=== PATIENT | male | born 1940 | race Caucasian/White ===

== ENCOUNTER 2018-02-14 21:16 | Emergency (ER) | payer MEDICARE, BC ==
--- NOTE | 2018-02-14 21:43 | EDM.PDOC ---
ED HPI GENERAL MEDICAL PROBLEM - General Chief Complaint: Cardiovascular Problem Stated Complaint: possible [facility] Time Seen by Provider: 02/14/18 21:20 Source of Information: Reports: Patient History Limitations: Reports: No Limitations - History of Present Illness INITIAL COMMENTS - FREE TEXT/NARRATIVE: Pt is a 77 year male with IDDM, CRF with AVR with CHF presenting to emergency room by ambulance.According to patient he has been short of breath since 8 Pm today.Shortness of breath came on suddenly. Pt has had no chest pain, sweating, nausea, vomiting. Pt has been drinking lots fluids recently as he has been working outdoor in the [employer]. No fever or chills. No chest pain. Has been having wet cough since today evening. Also he has been frequently waking up to urinate at night for past few days.He cannot lye down flat as his shortness of breath gets worse, feels better sitting on bedside. Pt has had several episodes of CHF in the past. He does have Heart failure education, but he is non-compliant according to pt's spouse. Onset: Today Onset Date: 02/14/18 Onset Time: 20:00 Duration: Constant, Other (unchanged) Quality: Reports: Ache Severity: Moderate Improves with: Reports: None Worsens with: Reports: None Associated Symptoms: Reports: Shortness of Breath. Denies: Confusion, Chest Pain, Cough, Diaphoresis, Fever/Chills, Headaches, Nausea/Vomiting, Rash, Seizure, Syncope, Weakness ED ROS GENERAL - Review of Systems Review Of Systems: See Below Constitutional: Denies: Fever, Chills, Malaise, Weakness, Night Sweats, Diaphoresis HEENT: Denies: Rhinitis, Sinus Problem, Throat Pain, Throat Swelling, Vertigo Respiratory: Reports: Shortness of Breath. Denies: Wheezing, Pleuritic Chest Pain, Cough, Sputum Cardiovascular: Denies: Chest Pain, Lightheadedness GI/Abdominal: Denies: Abdominal Pain, Constipation, Diarrhea, Nausea, Vomiting : Denies: Dysuria, Flank Pain Musculoskeletal: Denies: Joint Pain, Joint Swelling Skin: Denies: Pruritis, Rash ED EXAM, GENERAL - Physical Exam Exam: See Below Exam Limited By: No Limitations General Appearance: Alert, WD/WN, No Apparent Distress Eye Exam: Bilateral Eye: EOMI, PERRL Ears: Normal External Exam, Normal Canal, Hearing Grossly Normal, Normal TMs Ear Exam: Bilateral Ear: Auricle Normal, Canal Normal, TM normal Nose: Normal Inspection, Normal Mucosa, No Blood Throat/Mouth: Normal Inspection, Normal Lips, Normal Teeth, Normal Gums, Normal Oropharynx, Normal Voice, No Airway Compromise Head: Atraumatic, Normocephalic Neck: Normal Inspection, Supple, Non-Tender, Full Range of Motion Respiratory/Chest: No Accessory Muscle Use, Chest Non-Tender, Respiratory Distress (moderate), Crackles (Coarse expiratory crakles heard all over the lung parry, with decreased air entry in the posterior chest.) Cardiovascular: Regular Rate, Rhythm. No: No Murmur GI/Abdominal: Normal Bowel Sounds, Soft, Non-Tender, No Organomegaly, No Distention, No Abnormal Bruit, No Mass Back Exam: Normal Inspection, Full Range of Motion, NT Extremities: Normal Range of Motion, Non-Tender, Normal Capillary Refill, Pedal Edema (3+ pitting type) Neurological: Alert, Oriented, CN II-XII Intact, Normal Cognition Skin Exam: Warm, Intact EKG INTERPRETATION EKG Date: 02/14/18 Rhythm: NSR Rate (Beats/Min): 108 EKG Interpretation Comments: Paced rhythm Course - Vital Signs Text/Narrative:: Pt appears to be in acute heart failure, from fluid overload. He does have 3+ pitting edema of both lower extremities.He does have coarse crackles of the lungs with decreased air entry. He is needing 15 litres with blow by oxygen to keep his SPO2 at 96-98%. LABs ordered. he did receive 40mg IV lasix. Chest Xray does show pulmonary edema. Started on IV nitro drip at 1 mcg/ min. Pt is very anxious, asking for him to be sent to [facility], and Short of breath, He did receive morphine 4mg IV. Pt's CBC shows elevation of white count of 16.8, Hemoglobin of 13.8. His CMP appears normal other than creat of 2.2 with BUN of 49( pt does have CRF), troponin is negative. BNP is 2250. ABG shows PH of 7/39 with PO2 of 103.INR 2.8.Pt did improve, he has diuresed around 700cc of urine. His respiratory rate is around 14-16/min and maintaining his SPO2 around 94-96% on 5 litres of NC O2. Pt is presently on nitro drip. Very comfortable. I did discuss with patient and his spouse that his acute CHF is stabilized but needs transfer to [facility] for inpatient admission for further workup and management of his CHF. They did agree to be transferred to [facility].I did contact [facility] and discuss patient with Dr. Garcia, the hospitalist taxation consultant. He has agreed to accept patient. PT is hemodynamically stable at the time of transfer. Further care per Dr. Garcia. Last Recorded V/S: Last Vital Signs Temp 97 F 02/14/18 21:44 Pulse 99 02/15/18 00:01 Resp 22 H 02/15/18 00:01 BP 140/79 02/15/18 00:31 Pulse Ox 100 02/15/18 03:15 - Orders/Labs/Meds Labs: Laboratory Tests 02/14/18 02/14/18 02/14/18 Range/Units 22:00 22:00 22:00 WBC 16.8 H (4.0-11.0) K/uL RBC 4.20 L (4.50-6.50) M/uL Hgb 13.8 (13.0-18.0) g/dL Hct 41.0 (40.0-54.0) % MCV 98 H (76-96) fL MCH 32.9 H (27.0-32.0) pg MCHC 33.7 (31.0-35.0) g/dL RDW 15.6 (11.0-16.0) % Plt Count 189 (150-400) K/uL MPV 9.7 (6.0-10.0) fL Neut % (Auto) 76.5 H (45.0-70.0) % Lymph % (Auto) 8.1 L (20.0-40.0) % Howell % (Auto) 9.0 (3.0-10.0) % Eos % (Auto) 6.2 H (1.0-5.0) % Baso % (Auto) 0.2 (0.0-0.5) % Neut # (Auto) 12.88 H (2.00-7.50) K/uL Lymph # (Auto) 1.36 L (1.50-4.00) K/uL Howell # (Auto) 1.52 H (0.20-0.80) K/uL Eos # (Auto) 1.05 H (0.04-0.40) K/uL Baso # (Auto) 0.03 (0.02-0.10) K/uL PT 26.1 H (9.0-11.5) sec INR 2.8 (1.0-3.5) ABG pH (7.35-7.45) ABG pCO2 (35-45) mmHg ABG pO2 (80-105) mmHg ABG HCO3 (22-26) mmol/L ABG O2 Saturation (95-98) % ABG Base Excess (-2-2) O2 Delivery Device Sodium (136-145) mmol/L Potassium (3.5-5.1) mmol/L Chloride (98-107) mmol/L Carbon Dioxide (21.0-32.0) mmol/L Anion Gap (5.0-15.0) mmol/L BUN (8-26) mg/dL Creatinine (0.70-1.30) mg/dL Est Cr Clr Drug Dosing Estimated GFR (MDRD) (>60) MLS/MIN BUN/Creatinine Ratio (6-25) Glucose (74-100) mg/dL Calcium (8.5-10.1) mg/dL Total Bilirubin (0.0-1.0) mg/dL AST (15-37) U/L ALT (12-78) U/L Alkaline Phosphatase (46-116) U/L Troponin I (0.000-0.060) ng/mL B-Natriuretic Peptide 2250 H (0-450) pg/mL Total Protein (6.4-8.2) g/dL Albumin (3.4-5.0) g/dL Globulin (2.2-4.2) g/dL Albumin/Globulin Ratio (0.8-2.0) 02/14/18 02/14/18 Range/Units 22:00 22:30 WBC (4.0-11.0) K/uL RBC (4.50-6.50) M/uL Hgb (13.0-18.0) g/dL Hct (40.0-54.0) % MCV (76-96) fL MCH (27.0-32.0) pg MCHC (31.0-35.0) g/dL RDW (11.0-16.0) % Plt Count (150-400) K/uL MPV (6.0-10.0) fL Neut % (Auto) (45.0-70.0) % Lymph % (Auto) (20.0-40.0) % Howell % (Auto) (3.0-10.0) % Eos % (Auto) (1.0-5.0) % Baso % (Auto) (0.0-0.5) % Neut # (Auto) (2.00-7.50) K/uL Lymph # (Auto) (1.50-4.00) K/uL Howell # (Auto) (0.20-0.80) K/uL Eos # (Auto) (0.04-0.40) K/uL Baso # (Auto) (0.02-0.10) K/uL PT (9.0-11.5) sec INR (1.0-3.5) ABG pH 7.39 (7.35-7.45) ABG pCO2 44.6 (35-45) mmHg ABG pO2 123 H* (80-105) mmHg ABG HCO3 27.2 H (22-26) mmol/L ABG O2 Saturation 99 H (95-98) % ABG Base Excess 2 (-2-2) O2 Delivery Device Nasal cannula Sodium 138 (136-145) mmol/L Potassium 3.9 (3.5-5.1) mmol/L Chloride 102 (98-107) mmol/L Carbon Dioxide 26.4 (21.0-32.0) mmol/L Anion Gap 13.5 (5.0-15.0) mmol/L BUN 49 H (8-26) mg/dL Creatinine 2.20 H (0.70-1.30) mg/dL Est Cr Clr Drug Dosing TNP Estimated GFR (MDRD) 29 L (>60) MLS/MIN BUN/Creatinine Ratio 22.3 (6-25) Glucose 132 H (74-100) mg/dL Calcium 9.2 (8.5-10.1) mg/dL Total Bilirubin 0.8 (0.0-1.0) mg/dL AST 20 (15-37) U/L ALT 22 (12-78) U/L Alkaline Phosphatase 202 H (46-116) U/L Troponin I 0.043 (0.000-0.060) ng/mL B-Natriuretic Peptide (0-450) pg/mL Total Protein 7.9 (6.4-8.2) g/dL Albumin 3.8 (3.4-5.0) g/dL Globulin 4.1 (2.2-4.2) g/dL Albumin/Globulin Ratio 0.9 (0.8-2.0) Meds: Medications Discontinued Medications Generic Name Dose Route Start Last Admin Trade Name Ananth PRN Reason Stop Dose Admin Furosemide 20 mg 02/14/18 21:48 02/15/18 00:18 Lasix IVPUSH 02/14/18 21:49 Not Given ONETIME ONE Furosemide 40 mg 02/14/18 21:40 02/14/18 21:47 Lasix IVPUSH 02/14/18 21:41 40 mg NOW ONE Administration Nitroglycerin/Dextrose 25 mg in 250 mls @ 0.6 mls/hr 02/14/18 22:30 02/14/18 22:24 Nitroglycerin 25 Mg/D5w 250 Ml IV 1 mcg/min TITRATE LUCIA 0.6 mls/hr Administration Protocol 1 MCG/MIN Morphine Sulfate 4 mg 02/14/18 22:30 02/14/18 22:17 Morphine IV 4 mg STAT LUCIA Administration Morphine Sulfate 10 mg 02/14/18 23:00 Morphine .ROUTE 02/14/18 23:01 .STK-MED ONE Departure - Departure Time of Disposition: 01:00 Disposition: DC/Tfer to Acute Hospital 02 Reason for Transfer *Q: Other (Acute CHF) Condition: Fair Clinical Impression: Acute CHF (congestive heart failure) Referrals: PCP,None [Primary Care Provider] - Forms: ED Department Discharge - Problem List & Annotations (1) Acute CHF (congestive heart failure) SNOMED Code(s): 64735914 Code(s): I50.9 - HEART FAILURE, UNSPECIFIED Status: Acute - Problem List Review Problem List Initiated/Reviewed/Updated: Yes - Assessment/Plan Assessment:: Acute CHF stabilized Plan: Pt appears to be in acute heart failure, from fluid overload. He does have 3+ pitting edema of both lower extremities.He does have coarse crackles of the lungs with decreased air entry. He is needing 15 litres with blow by oxygen to keep his SPO2 at 96-98%. LABs ordered. he did receive 40mg IV lasix. Chest Xray does show pulmonary edema. Started on IV nitro drip at 1 mcg/ min. Pt is very anxious, asking for him to be sent to [facility], and Short of breath, He did receive morphine 4mg IV. Pt's CBC shows elevation of white count of 16.8, Hemoglobin of 13.8. His CMP appears normal other than creatinine of 2.2 with BUN of 49( pt does have CRF), troponin is negative. BNP is 2250. ABG shows PH of 7/39 with PO2 of 103.INR of 2.8Pt did improve, he has diuresed around 700cc of urine. His respiratory rate is around 14-16/min and maintaining his SPO2 around 94-96% on 5 litres of [place] O2. Pt is presently on nitro drip. Very comfortable. I did discuss with patient and his spouse that his acute CHF is stabilized but needs transfer to [facility] for inpatient admission for further workup and management of his CHF. They did agree to be transferred to [facility].I did contact [facility] and discuss patient with Dr. Garcia, the hospitalist taxation consultant. He has agreed to accept patient. PT is hemodynamically stable at the time of transfer. Further care per Dr. Garcia.
[2018-02-14] MEDS: Furosemide 40 MG/4 ML VIAL IVPUSH ONE (21:47)
[2018-02-14] MEDS: Morphine 10 MG/ML SDV IV SCH (22:17)
[2018-02-14] MEDS: Nitroglycerin/D5W 25 MG/250 ML BOTTLE IV SCH (22:24)
[2018-02-14] MEDS ORDERED: Morphine 10 MG/ML Syringe ONE (23:00)
[2018-02-15] MEDS: Furosemide 20 MG/2 ML VIAL IVPUSH ONE (00:18)
--- NOTE | 2018-02-15 08:11 | CR ---
DATE OF SERVICE: 02/14/18 CLINICAL DATA: shortness of breath AP PORTABLE CHEST: No priors. There is a cardiac pacer overlying the right chest with distal pacer wires in the region of the right ventricle. The heart is enlarged. There is calcification of the aortic arch. There is pulmonary vascular congestion with interstitial edema throughout both lungs. These findings are consistent with congestive failure. I do not see any other significant findings. [id number] [facility]
== END 2018-02-15 01:00 ==
LOC: LB.ED 21:16
DX: I50.9 Heart failure, unspecified (principal); E11.22 Type 2 diabetes mellitus with diabetic chronic kidney disease; N18.9 Chronic kidney disease, unspecified
CPT/HCPCS: 36415; 36600; 71045; 80053; 82803; 83880; 84484; 85025; 85610; 93005; 96365; 96366; 96375; 99285-25; A0425; A0429; J1940; J2270; J3490